=== PATIENT | male | born 1960 | race Caucasian/White ===

== ENCOUNTER 2016-06-24 10:05 | Emergency (ER) | payer OTHER ==
[~2016-06-24] VITALS: Ht 185.4 cm; Wt 109.1 kg
[2016-06-24 10:07] VITALS: BP 138/86; PULSE 76; RESP 18; O2SAT 99
--- NOTE | 2016-06-24 10:18 | ED.REPORT ---
HPI-Chest Pain 40 and Over Date of Service Jun 24, 2016 ED Provider: Dr. Morgan A 55 year old male with a history of spine injury presents to the ED complaining of chest pain onset this morning. The pain is described as if somebody were pushing on a bruise. He has had baseline chest pain for the plast couple of months that occurs with and is exacerbated by bends, twists, and taking deep breaths. Baseline pain is faint and expressed as intermittent episodes that can last from 1 to a few seconds. Baseline pain is transient in nature, with waves of multiple brief episodes occurring within a few minutes of each other. Baseline pain can radiate to the left or right. The current pain has since become mild since onset but has not ceased and continues to come in waves. Associated symptoms include SOB and feelings of anxiousness. He denies any fever but does report having sickness and a cough that has been present for the last few days. He had a severe sinus infection back in December and January where he had to miss a lot of work days. He reports having hernia surgery in his 20's and past treatment of a broken arm. He also reports baseline pain in arm and side of face related to past C-spine surgery. He is a social drinker, but does not smoke. Nursing Notes Stated Complaint: CHEST PAIN Chief Complaint: Chest Pain Nursing Notes Reviewed: Yes Allergies: Coded Allergies: No Known Allergies (Unverified , 06/24/16) General Time Seen by MD: 10:18 Chief Complaint Chest pain Hx Obtained From: Patient Arrived By: Walk-in Sudden in Onset?: No Onset Occurred: 1 - 4 hours ago Symptom Duration: Intermittent Severity: Current: Moderate Severity: Maximum: Moderate Recent Healthcare: No recent doctor visit Similar Sx Previous: No Past Medical History Past Medical History Reports baseline chest pain onset a couple of months ago that comes in waves of multiple ,1 to a few seond long ,episodes that occur within a few minutes of each other. Severe sinus infection in December and January. Past Surgical History C-spine surgery. hernia surgery when he was in his 20's. Treatment of broken arm. Smoking History Never Smoker Social History Alcohol Use: "Social" Other Social History: Good social support Ambulatory Status Independent Review of Systems Review of Systems Note: Feeling anxious. Sickness for the last few days. Constitutional: Denies: Fever Respiratory: Reports: Non-productive cough, Shortness of breath Cardiovascular: Reports: Chest pain Complete sys rev & neg: except as marked. Physical Exam Initial Vital Signs Vital Signs (First) Date Time Temp Pulse Resp B/P Pulse Ox O2 Delivery O2 Flow Rate FiO2 06/24/16 10:07 36.2 76 18 138/86 99 Room Air Initial VS: Reviewed General/Constitutional: Awake, Alert Respiratory / Chest: Atraumatic, Breath sounds NL, Breath sounds = bilat, No respiratory distress, No rales, No rhonchi, No wheezing Cardiovascular: Heart rate NL, Regular rhythm, Heart sounds NL, No murmurs Abdomen: Atraumatic, No guarding, No rebound Neck: Atraumatic, Full range of motion Back: Atraumatic, Full range of motion Lower Extremity / Pelvis / MS: Atraumatic, Full range of motion Right Thigh: Positive: Ecchymosis present, Erythema present, Tenderness present... Skin: Color NL, Warm, Dry Neurologic: Oriented X3, Speech NL Head / Eyes: Atraumatic, Normocephalic, PERRL, EOMI ENT: Atraumatic, Mucous membranes moist Upper Extremity / MS: Atraumatic, Full range of motion Wrist / Hand: Atraumatic, Full range of motion Interpretation & Diagnostics Lab Results Interpretation Result Diagram: 06/24/16 1015 06/24/16 1015 Test 06/24/16 10:15 White Blood Count 6.9th/mm3 (3.8-10.1) Red Blood Count 5.33mil/mm3 (4.40-5.80) Hemoglobin 16.3g/dL (13.8-17.2) Hematocrit 47.7% (41.0-50.0) Mean Corpuscular Volume 89.5fL (81-100) Mean Corpuscular Hemoglobin 30.6pg (27.0-35.0) Mean Corpuscular Hemoglobin Concent 34.2% (32.0-37.0) Red Cell Distribution Width 13.7% (12.3-15.4) Platelet Count 194bil/L (150-400) Neutrophils (%) (Auto) 50.8% (40-74) Lymphocytes (%) (Auto) 37.7% (14-46) Monocytes (%) (Auto) 9.4% (4-12) Eosinophils (%) (Auto) 1.6% (0-5) Basophils (%) (Auto) 0.4% (0-3) Prothrombin Time 10.3sec (8.1-12.5) Prothromb Time International Ratio 0.96ratio D-Dimer < 0.5mg/L (<0.50) Sodium Level 138mEq/L (134-144) Potassium Level 4.4mEq/L (3.5-5.2) Chloride Level 103mEq/L (97-108) Carbon Dioxide Level 22mmol/L (18-29) Blood Urea Nitrogen 13mg/dL (6-24) Creatinine 1.04mg/dL (0.76-1.27) Estimat Glomerular Filtration Rate 79mL/min (>59) Glucose Level 103mg/dL (60-99) Calcium Level 8.9mg/dL (8.5-10.1) Magnesium Level 2.2mg/dL (1.6-2.6) Total Bilirubin 0.9mg/dL (0.0-1.2) Aspartate Amino Transf (AST/SGOT) 23U/L (0-50) Alanine Aminotransferase (ALT/SGPT) 30U/L (0-44) Alkaline Phosphatase 64U/L (25-150) Troponin T 0.010ug/L (0.0-0.011) Pro-B-Type Natriuretic Peptide 29.06pg/mL (0-210) Total Protein 7.1g/dL (6.4-8.4) Albumin 4.2g/dL (3.4-5.0) Hold Sosa Top Tube Received (Received) ECG Interpretation ECG Interpretation: Rate is 71. Sinus rhythm. Left anterior fasicular block. Time: 10:13 Interpreted by: ED physician X-Ray Chest Interpretation Chest Xray Interpretation: IMPRESSION: No acute cardiopulmonary disease. Dictated by: Joe Munoz RRA Interpreted: Manda White MD on 06/24/2016 at 12:18 Transcribed by: CHANTELLE on 06/24/2016 at 12:18 View: Portable, 1 view Interpretation / Wet Read by: Interpret - Radiologist Re-Eval/Medical Decision Med Decision/Clinical Course Overall signs and symptoms not consistent with acute coronary syndrome, troponin negative, EKG unremarkable, I recommended close outpatient follow-up and the patient is educated regarding return and follow-up precautions Source of Hx: Old records Time of Eval: 12:25 Re-Evaluation/Progress Note: Rechecked patient, explained test results, diagnosis, and plan for discharge. Patient understands and agrees with the plan. All questions addressed. Counseled Regarding: Diagnosis, Lab results, Need for follow-up, When/why to return to ED Discharge & Departure Primary Impression: Chest pain Disposition: Home Discharge Condition All VS Reviewed: Yes Condition: Improved Patient Instructions: Angina (ED) Additional Instructions: Overall your symptoms do not sound like you are having a heart attack and your workup shows no life-threatening pathology at this time. Begin taking an aspirin daily. Call your doctor for an outpatient stress test. Return to the ER for persistent chest pain concerning for heart attack or other concerns. Referrals: JAS (PCP) Thelmaibnikolas Attestation Portions of this note were transcribed by Jorge Olvera. I, Dr. Morgan personally performed the history, physical exam and medical decision-making; I reviewed and confirmed the accuracy of the information in the transcribed note. Signed by: Charlotte Todd, 06/24/2016 0270. copies to: Meet Valencia DO Jun 24, 2016 10:18 Jorge Olvera Jun 24, 2016 10:26
[2016-06-24] MEDS ORDERED: Ketorolac 15 mg/mL Inj IVPUSH ONE (10:40)
[2016-06-24] MEDS ORDERED: Ondansetron 2 mg/mL 2 mL Inj IVPUSH PRN (10:40)
[2016-06-24 10:43] LABS: BASOPHILS % (AUTO) 0.4 % (0-3); EOSINOPHILS % (AUTO) 1.6 % (0-5); MONOCYTES % (AUTO) 9.4 % (4-12); Mean Corpuscular Hemoglobin 30.6 pg (27.0-35.0); Mean Corpuscular Volume 89.5 fL (81-100); NEUTROPHILS % (AUTO) 50.8 % (40-74); Platelet Count 194 bil/L (150-400)
[2016-06-24 10:57] LABS: INR 0.96 ratio
[2016-06-24 11:04] LABS: TROPONIN T 0.01 ug/L (0.0-0.011)
[2016-06-24 11:15] LABS: Magnesium 2.2 mg/dL (1.6-2.6)
[2016-06-24 11:17] VITALS: BP 130/75; PULSE 70; RESP 17; O2SAT 97
--- NOTE | 2016-06-24 12:18 | DRSVH ---
PROCEDURE: X-RAY CHEST ONE VIEW, PORTABLE ([id number]) INDICATIONS: cp TECHNIQUE: One view of the chest was acquired. COMPARISON: None. FINDINGS: Surgical changes and devices: None. Lungs and pleura: No pleural effusions or pneumothorax. Lungs are clear. Mediastinum: Mediastinal contours appear normal. Heart size is normal. Bones and chest wall: No suspicious bony lesions. Overlying soft tissues appear unremarkable. IMPRESSION: No acute cardiopulmonary disease. Dictated by: Joe Munoz [facility] Interpreted: Manda White MD on 06/24/2016 at 12:18 Transcribed by: CHANTELLE on 06/24/2016 at 12:18 Approved by: Manda White MD, PhD on 06/25/2016 at 11:00
[2016-06-24 12:48] VITALS: BP 132/84; PULSE 73; RESP 20; O2SAT 95
== END 2016-06-24 12:49 | disposition home or self-care (01) ==
LOC: SED 10:05
DX: R07.9 Chest pain, unspecified (principal); R06.02 Shortness of breath; F41.9 Anxiety disorder, unspecified; R05 Cough
CPT/HCPCS: 36415; 71010; 80053; 82948; 83735; 83880; 84484; 85025; 85379; 85610; 93005; 96374; 99285; J1885